=== PATIENT | male | born 1965 | race Caucasian/White ===

== ENCOUNTER 2021-09-07 06:34 | Day surgery (SDC) | payer OTHER ==
[~2021-09-07 06:34] MED LIST: LACTATED RINGERS 1,000 ML IV SCH; LIDOCAINE 1% (10MG/ML) FOR IV START INTRADERMA PRN
[2021-09-07 07:43] VITALS: TEMP 97
[2021-09-07] MEDS ORDERED: LACTATED RINGERS 1,000 ML IV ONE (07:48)
[2021-09-07] MEDS ORDERED: PROPOFOL 10 MG/ML 20 ML VIAL IV ONE (07:52)
--- NOTE | 2021-09-07 08:06 | P.PCN ---
Date of Procedure: 09/07/21 Procedure(s) Performed: BRIEF HISTORY: Patient is a 55-year-old pleasant white male scheduled for an elective colonoscopy as a part of evaluation of prior history of colon polyps. Last coloscopy was 5 years ago. PROCEDURE PERFORMED: Colonoscopy with biopsy. PREOPERATIVE DIAGNOSIS: History of colon polyps. IV sedation per Anesthesia. PROCEDURE: After informed consent was obtained, the patient, was brought into the endoscopy unit. IV sedation was administered by Anesthesia under continuous monitoring. Digital rectal examination was normal. Initially the Olympus CF-160 flexible video colonoscope was then inserted in the rectum, gradually advanced into the cecum without any difficulty. Careful examination was performed as the scope was gradually being withdrawn. Ileocecal valve and the appendiceal orifice were visualized and appeared normal. Prep was excellent. Mucosa of the cecum, ascending colon, appeared normal. The transverse colon, had a 3 mm polyp that was removed by cold biopsy. Rest of the descending colon, sigmoid colon, and rectum appeared normal. Retroflexion was performed in the rectum and no lesions were seen. The patient tolerated the procedure well. IMPRESSION: 3 mm transverse colon polyp status post cold biopsy Rest of the colon appeared normal RECOMMENDATIONS: Findings of this examination were discussed with the patient as well as his family. He was advised to follow with the biopsy results. If biopsies adenoma he can have a repeat colonoscopy in 5 years..
[2021-09-07 08:43] VITALS: BP 119/79; PULSE 60; RESP 16
== END 2021-09-07 08:56 | disposition home or self-care (01) ==
LOC: ORWHC2ENDO 06:34
PROVIDERS: ATTEND Internal Medicine Gastroenterology
DX: Z12.11 Encounter for screening for malignant neoplasm of colon (principal); D12.3 Benign neoplasm of transverse colon; Z87.19 Personal history of other diseases of the digestive system; Z86.010 Personal history of colon polyps
CPT/HCPCS: 45380; 88305; J2704

== ENCOUNTER → 2022-08-22 | Outpatient (CLI) | payer OTHER ==
--- NOTE | 2022-08-22 19:28 | CA ---
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[employer] Technologist Procedure CPT: Indication: R00.2 palpitations ICD-9 Codes: Rhythm: Patient History: PALPITATIONS Cardiac Medications: Medications in past 24 hours: Contrast: Stress Results Protocol: Kendrick Total dose(mL): Exercise Duration (min:sec): 10:[address] Depression (mm): Angina Score: Davis Score: METS: 11.9 Resting HR: 65 Resting BP: 122 / 88 Peak HR: 150 Peak BP: 192 / 84 Max Predicted HR: 164 91 % Max Predicted HR Target HR: 139 Double Product: 15948 Stress Summary: BP Response: Reason for Termination: MAX EXERTION/TARGET HR Cardiac Symptoms: NO SYMPTOMS ECG Analysis Resting ECG: Stress ECG: Arrhythmia: Echo Analysis Resting Echo: Peak Echo Analysis: MEASUREMENTS (Male/Female) Normal Values CONCLUSIONS Baseline heart is 60 beats a minute, Baseline blood pressure 122/88 mmHg Baseline twelve-lead EKG shows sinus mechanism normal ME narrow QRS normal ST segments Patient exercised on a Kendrick protocol for 10 minutes 20 seconds achieving a peak heart rate of 125 beats a minute. Peak blood pressure 192/80 400 Ms. mercury There was no ECG is for ischemia Occasional PVCs are noted Baseline 2-D echo showed normal LV systolic function without segmental wall motion abnormalities @Peak exercise there was excellent augmentation of overall LV contractility, without development of any wall motion abnormalities @Recovery, regional and global LV systolic function remained normal Impression No ECG or echocardiographic evidence for ischemia Good exercise capacity Dr. Deniz Suero MD (Electronically Signed) Final Date: 22 Aug 2022 19:27
== END | disposition home or self-care (01) ==
LOC: RADNMMAIN 09:17
PROVIDERS: ATTEND Family Medicine
DX: R00.2 Palpitations (principal)
CPT/HCPCS: 93270; 93351